=== PATIENT | female | born 1950 | race African-American/Black ===

== ENCOUNTER 2016-07-01 19:01 | Emergency (ER) | payer OTHER, BC, MEDICARE ==
[2016-07-01] MEDS ORDERED: OXYCODONE-ACETAMINOPHEN 5-325 MG TABLET PO ONE (19:56)
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
[2016-07-01] MEDS ORDERED: IBUPROFEN 600 MG TABLET PO ONE (21:27)
[2016-07-01] MEDS ORDERED: ONDANSETRON 4 MG TAB.RAPDIS SL ONE (21:27)
[2016-07-01] MEDS ORDERED: HYDROCODONE/ACETAMINOPHEN 5-325 MG 6 TAB/DSPK PO PRN (22:26)
[2016-07-01 22:50] VITALS: BP 153/74
== END 2016-07-01 22:40 | disposition home or self-care (01) ==
LOC: ER 19:01
DX: S16.1XXA Strain of muscle, fascia and tendon at neck level, initial encounter (principal); R51 Headache; M54.2 Cervicalgia; V89.2XXA Person injured in unspecified motor-vehicle accident, traffic, initial encounter
CPT/HCPCS: 99284; 70450; 72125; S0119